=== PATIENT | female | born 1990 | race Caucasian/White ===

== ENCOUNTER 2017-05-27 16:14 | Emergency (ER) | payer OTHER ==
[~2017-05-27] VITALS: Ht 167.6 cm; Wt 80.9 kg
[2017-05-27 16:18] VITALS: BP 125/81; PULSE 86; RESP 20; O2SAT 100
--- NOTE | 2017-05-27 17:12 | ED.REPORT ---
HPI-General Illness Date of Service May 27, 2017 ED Provider: Alessandro Parks MD The patient is a 26 year old female who presents to the ED due to constant vomiting and diarrhea since last night. The pt is 9 weeks and began having severe morning sickness approximately 2.5 weeks ago. It has gotten progressively worse since. She has been taking B6 and Unisom to try to reyes symptoms which has not been effective. She was sent to the ED by her OB for evaluation. She denies abdominal cramping, chills, chest pain, SOB, bloody/ tarry stool, and vaginal spotting. The pt has had 2 miscarriages previously. Nursing Notes Stated Complaint: VOMITING, DIARRHEA/SENT FROM OB DOCTOR Chief Complaint: & Delivery Nursing Notes Reviewed: Yes Allergies: Coded Allergies: ciprofloxacin (Verified Allergy, Severe, rash all over, elevated hr, ) banana (Unverified Allergy, Mild, 05/27/17) Metalic taste in mouth Eduardo (Verified Allergy, Unknown, 05/27/17) amoxicillin (Verified Allergy, Unknown, 05/27/17) cefaclor (Verified Allergy, Unknown, 05/27/17) latex (Verified Allergy, Unknown, 05/27/17) Uncoded Allergies: [place] (Allergy, Mild, 05/30/12) Metalic taste in mouth RASPBERRY (Allergy, Mild, 05/27/17) ALL CYCLINES (Allergy, Unknown, 05/27/17) Scheduled PRN Metoclopramide (Metoclopramide) 10 Mg Tablet 10 MG PO QID PRN PRN For Nausea General Time Seen by MD: 17:08 Chief Complaint Vomiting Hx Obtained From: Patient Arrived By: Walk-in Sudden in Onset?: Yes Onset Occurred: Yesterday Symptom Duration: Since onset Recent Healthcare: Recent doctor visit Similar Sx Previous: Yes Past Medical History Past Medical History 9 weeks 2 previous miscarriages Past Surgical History fillopian Reports: Appendectomy, Tonsillectomy Smoking History Unknown if Ever Smoker Social History Other Social History: Good social support, Local resident Ambulatory Status Independent Review of Systems Full Review of Systems Constitutional: Denies: Chills, Fever Respiratory: Denies: Shortness of breath Cardiovascular: Denies: Chest pain GI: Reports: Diarrhea, Nausea, Vomiting, Denies: Abdominal pain, Bloody/tarry stool, Constipation Female: Denies: Vaginal bleeding - abnl, Vaginal discharge Complete sys rev & neg: except as marked. Physical Exam Nursing note and vitals reviewed. Constitutional: Well-developed, well-nourished. Not diaphoretic. Head: Normocephalic and atraumatic. Mouth/Throat: Oropharynx is clear and moist. No oropharyngeal exudate. Eyes: EOM are normal. Pupils are equal, round, and reactive to light. Neck: Supple, no tracheal deviation. Cardiovascular: Normal rate, regular rhythm. Equal and intact distal pulses throughout. Pulmonary/Chest: Effort normal and breath sounds normal. No respiratory distress. Abdominal: Soft. No distension. There is no tenderness, rebound, or guarding. Musculoskeletal: Range of motion grossly intact, moving all extremities. No edema or tenderness appreciated. Neurological: AOx3. Grossly nonfocal exam. Strength and sensation intact and equal to bilateral upper and lower extremities. Skin: Warm and dry, no rashes or pallor appreciated. Psychiatric: Appropriate mood and affect. Behavior appears normal. Vital Signs Vital Signs Date Time Temp Pulse Resp B/P Pulse Ox O2 Delivery O2 Flow Rate FiO2 05/27/17 23:09 71 16 104/60 97 Room Air 05/27/17 19:48 77 16 110/48 99 Room Air 05/27/17 16:18 37.2 86 20 125/81 100 Room Air Initial VS: Reviewed Interpretation & Diagnostics Lab Results Interpretation Result Diagram: 05/27/17 1710 05/27/17 1710 Test 05/27/17 17:10 05/27/17 17:16 White Blood Count 10.6th/mm3 (3.8-10.1) Red Blood Count 4.94mil/mm3 (3.90-5.20) Hemoglobin 14.6g/dL (12.0-15.6) Hematocrit 41.3% (35.0-46.0) Mean Corpuscular Volume 83.6fL (81-100) Mean Corpuscular Hemoglobin 29.6pg (27.0-35.0) Mean Corpuscular Hemoglobin Concent 35.4% (32.0-37.0) Red Cell Distribution Width 12.0% (12.3-15.4) Platelet Count 210bil/L (150-400) Neutrophils (%) (Auto) 82.9% (40-74) Lymphocytes (%) (Auto) 10.4% (14-46) Monocytes (%) (Auto) 6.2% (4-12) Eosinophils (%) (Auto) 0.2% (0-5) Basophils (%) (Auto) 0.1% (0-3) Sodium Level 136mEq/L (134-144) Potassium Level 3.6mEq/L (3.5-5.2) Chloride Level 100mEq/L (97-108) Carbon Dioxide Level 19mmol/L (18-29) Blood Urea Nitrogen 6mg/dL (6-20) Creatinine 0.50mg/dL (0.57-1.00) Estimat Glomerular Filtration Rate 217mL/min (>59) Glucose Level 86mg/dL (60-99) Calcium Level 9.7mg/dL (8.5-10.1) Magnesium Level 1.8mg/dL (1.6-2.6) Total Bilirubin 0.5mg/dL (0.0-1.2) Aspartate Amino Transf (AST/SGOT) 42U/L (0-50) Alanine Aminotransferase (ALT/SGPT) 59U/L (0-32) Alkaline Phosphatase 71U/L (25-150) Total Protein 8.1g/dL (6.4-8.4) Albumin 4.6g/dL (3.4-5.0) Lipase 43U/L (13-60) Urine Color Yellow (YELLOW) Urine Appearance Hazy (CLEAR,HAZY) Urine pH 5.5 (5.0-8.0) Urine Specific [place] 1.030 (1.003-1.035) Urine Protein Tracemg/dL (NEG,TRACE) Urine Glucose (UA) Negativemg/dL (NEGATIVE) Urine Ketones 80mg/dL (NEGATIVE) Urine Occult Blood Negative (NEGATIVE) Urine Nitrite Negative (NEGATIVE) Urine Bilirubin Negative (NEGATIVE) Urine Urobilinogen Normalmg/dL (NORMAL) Urine Leukocyte Esterase Negative (NEGATIVE) Urine RBC 0-2/hpf (0-2) Urine WBC 0-5/hpf (0-5) Urine Epithelial Cells Moderate/hpf (NONE-MOD) Urine Crystals None seen (NONE SEEN) Urine Bacteria Few/hpf (NONE-FEW) Urine Hyaline Casts None/lpf (NONE) Urine Granular Casts None seen (NONE SEEN) Urine Waxy Casts None seen (NONE SEEN) Urine Red Blood Cell Casts None seen (NONE SEEN) Urine White Blood Cell Casts None seen (NONE SEEN) Urine Mucus Present (None Seen) Urine Trichomonas None seen (NONE SEEN) Urine Yeast None (NONE SEEN) Urinalysis Comment None Urine Culture Reflexed Not indicated Re-Eval/Medical Decision Med Decision/Clinical Course 26-year-old female at 8 weeks gestation presenting to the ED for evaluation of intractable nausea and vomiting. She has been taking doxylamine and pyridoxine with no significant relief. Given Zofran upon arrival, subsequently given Reglan with improvement in symptoms. 2 L of IV fluids were given. Upon reassessment, patient feels ready for discharge, able to tolerate by mouth. Given careful return precautions, follow-up in clinic tomorrow, and a prescription for Reglan. Patient agreeable to the plan as stated, no further questions. Time of Eval: 22:50 Re-Evaluation/Progress Note: Plan for fluids and Zofran. Time of Eval: 22:54 Patient Status: Condition improved, Complete relief Re-Evaluation/Progress Note: Feels much better on reassessment. Plan for discharge and follow up with OB. Pt understands and agrees with plan. F/U and RTER warnings given. All questions addressed. Counseled Regarding: Diagnosis, Lab results, Need for follow-up, When/why to return to ED Discharge & Departure Primary Impression: Vomiting Vomiting type: unspecified Vomiting Intractability: unspecified Nausea presence: unspecified Qualified Code: R11.10 - Vomiting, unspecified Additional Impressions: Diarrhea Diarrhea type: unspecified type Qualified Code: R19.7 - Diarrhea, unspecified First trimester Disposition: Home Discharge Condition All VS Reviewed: Yes Condition: Stable Patient Instructions: Nausea and Vomiting in (ED) Additional Instructions: Thank you for entrusting us with your care today. It is very important you drink plenty of fluids and stay well hydrated. Call your OB tomorrow and schedule an appointment in the next 1-2 days. Return to the Emergency Department if you experience any new or worsening symptoms including vaginal bleeding, abdominal cramping, increased vomiting and diarrhea, fever and chills. I hope you feel better soon. Best of luck with your ! Referrals: Jeremías Hutson MD (PCP) Cristi Dsouza MD Attestation Portion of this note were transcribed by Carol Kruger. I, Dr. Parks, personally performed the history, physical exam, and medical decision-making: I reviewed and confirmed the accuracy for the information in the transcribed note. Signed by: markus Eli, 05/27/17 [id number] copies to: Cristi Dsouza MD; Jeremías Hutson MD, William B MD May 27, 2017 17:11 Carol Kruger May 27, 2017 20:46
[2017-05-27 17:21] LABS: BASOPHILS % (AUTO) 0.1 % (0-3); EOSINOPHILS % (AUTO) 0.2 % (0-5); MONOCYTES % (AUTO) 6.2 % (4-12); Mean Corpuscular Hemoglobin 29.6 pg (27.0-35.0); Mean Corpuscular Volume 83.6 fL (81-100); NEUTROPHILS % (AUTO) 82.9 % (40-74); Platelet Count 210 bil/L (150-400)
[2017-05-27 17:37] LABS: APPEARANCE,URINE HAZY (CLEAR,HAZY); COLOR,URINE YELLOW (YELLOW); OCCULT BLOOD,URINE NEGATIVE (NEGATIVE); PH,URINE 5.5 (5.0-8.0); UROBILINOGEN,URINE NORMAL (NORMAL)
[2017-05-27 17:40] LABS: Magnesium 1.8 mg/dL (1.6-2.6)
[2017-05-27] MEDS ORDERED: Ondansetron 2 mg/mL 2 mL Inj IVPUSH ONE (18:05)
[2017-05-27] MEDS ORDERED: 0.9% Sodium Chloride 1,000 ML IV ONE ×2 (18:05→20:50)
[2017-05-27 19:48] VITALS: BP 110/48; PULSE 77; RESP 16; O2SAT 99
[2017-05-27] MEDS ORDERED: MetoCLOpramide 5 mg/mL 2 mL Inj IVPUSH PRN (20:50)
[2017-05-27] MEDS ORDERED: METO10TA3 PO (22:38)
[2017-05-27 23:09] VITALS: BP 104/60; PULSE 71; RESP 16; O2SAT 97
== END 2017-05-27 23:10 | disposition home or self-care (01) ==
LOC: SED 16:14
DX: O21.0 Mild hyperemesis gravidarum (principal); O26.891 Other specified pregnancy related conditions, first trimester; R19.7 Diarrhea, unspecified; Z3A.09 9 weeks gestation of pregnancy; Z88.1 Allergy status to other antibiotic agents; Z91.018 Allergy to other foods; Z91.040 Latex allergy status
CPT/HCPCS: 36415; 80053; 81000; 83690; 83735; 85025; 96374; 96375; 99285; J1200; J2405; J2765; J7030